=== PATIENT | female | born 1930 | race Caucasian/White ===

== ENCOUNTER 2020-09-15 08:57 | Inpatient (IN) | payer MEDICARE, BC ==
[~2020-09-15] VITALS: Ht 167.6 cm; Wt 73.5 kg
--- NOTE | 2020-09-15 09:00 | NUR ---
[id number] C/O HIP AND LOWER BACK PAIN S/P TRIPPED ON HER CAT AND FALLING BACKWARDS THIS AM. PATIENT A/OX4, BREATHING EVEN AND UNLABORED, NO SOB NOTED. NEEDS ATTENDED, REFUSED TO CHANGE INTO A GOWN. PLACED ON THE MONITOR.
--- NOTE | 2020-09-15 09:15 | NUR ---
MORGUE TECHNICIAN AT BEDSIDE
[2020-09-15] MEDS ORDERED: ACETAMINOPHEN 325 MG TABLET ONE (09:16)
[2020-09-15] MEDS ORDERED: ACETAMINOPHEN 325 MG TABLET PO ONE (09:30)
[2020-09-15] MEDS ORDERED: ACET-2605 PO (10:01)
--- NOTE | 2020-09-15 10:28 | NUR ---
Attempted to ambulate patient with a cane, patient c.o pain on right hip. Ordered walker and will try again.
--- NOTE | 2020-09-15 10:56 | NUR ---
PROVIDED PATIENT A WALKER, PATIENT IS STILL C/O PAIN ON HER RIGHT HIP WHEN SHE TRIES TO AMBULATE. DR. GALVAN MADE AWARE AND ORDERED A CT SCAN.
--- NOTE | 2020-09-15 11:18 | NUR ---
PATIENT CAME BACK FROM CT.
--- NOTE | 2020-09-15 11:19 | NUR ---
SON IFEANYI'S PHONE # [phone]
--- NOTE | 2020-09-15 11:56 | NUR ---
radiology md on phone talking to dr saldivar
--- NOTE | 2020-09-15 12:04 | NUR ---
panel paged. awaiting hospitalist call back. dr aquino.
--- NOTE | 2020-09-15 12:06 | NUR ---
paged orthopedics for consult, awaiting to call back.
--- NOTE | 2020-09-15 12:19 | NUR ---
MOVE SHEET SUBMITTED AND CALLED FOR MS BED.
--- NOTE | 2020-09-15 12:22 | NUR ---
COVID SWAB SENT. PATIENT A/OX4. RESTING, NO DISTRESS NOTED/
[2020-09-15] MEDS ORDERED: AMLO-212 PO (12:23)
[2020-09-15] MEDS ORDERED: FOLI0.4T6 PO (12:23)
[2020-09-15] MEDS ORDERED: LOVA20TA2 PO (12:23)
[2020-09-15 12:27] LABS: BASOPHILS % (AUTO) 0.2 % (0.0-2.0); EOSINOPHILS % (AUTO) 0.2 % (0.0-6.0); HEMATOCRIT 39 % (33-45); HEMOGLOBIN 12.8 g/dL (11.5-14.8); LYMPHOCYTES # (AUTO) 1.4 /CMM (0.8-4.8); MEAN CORPUSCULAR HGB CONC 33 g/dl (31.0-36.0); MEAN CORPUSCULAR VOLUME 95 fL (82-100); MONOCYTES # (AUTO) 0.6 /CMM (0.1-1.30); MONOCYTES % (AUTO) 3.8 % (2.0-12.0); NEUTROPHILS # (AUTO) 14.8 /CMM (1.8-8.9); NEUTROPHILS % (AUTO) 87.8 % (43.0-81.0); PLATELET COUNT (AUTO) 249 /CMM (150-450); RED BLOOD CELL COUNT(AUTO) 4.06 MIL/uL (4.0-5.2); WHITE BLOOD COUNT (AUTO) 16.9 K/uL (4.3-11.0)
[2020-09-15 12:32] LABS: CALCIUM, SERUM 8.9 mg/dL (8.5-10.1); POTASSIUM 3.8 mmol/L (3.5-5.1)
--- NOTE | 2020-09-15 13:07 | NUR ---
texted dr. blanca kam
--- NOTE | 2020-09-15 13:14 | NUR ---
CALLED [facility] PER DR. HALL REQUEST PA WILL CALL US BACK.
--- NOTE | 2020-09-15 13:19 | NUR ---
LAB CALLED PT COVID NEGATIVE (-)
[2020-09-15] MEDS ORDERED: VITA1TAB56 PO (13:23)
[2020-09-15] MEDS ORDERED: HYDROCODONE/APAP 5/325MG TABLET PO PRN (13:30)
[2020-09-15] MEDS ORDERED: Z GUARD REMEDY 2 OZ OINT TP PRN (13:30)
[2020-09-15] MEDS ORDERED: ZOLPIDEM TARTRATE 5 MG TABLET PO PRN (13:30)
[2020-09-15] MEDS ORDERED: ACETAMINOPHEN 325 MG TABLET PO PRN (13:30)
[2020-09-15] MEDS ORDERED: ONDANSETRON HCL/PF 4 MG/2 ML VIAL IVP PRN (13:30)
[2020-09-15] MEDS ORDERED: MAGNESIUM HYDROXIDE 30 ML UDC PO PRN (13:30)
[2020-09-15] MEDS ORDERED: MAG HYDROX/AL HYDROX/SIMETH 30 ML UDC PO PRN (13:30)
--- NOTE | 2020-09-15 14:00 | NUR ---
bed 307-1
--- NOTE | 2020-09-15 14:09 | NUR ---
REPORT GIVEN TO WAYNE MONROY.
--- NOTE | 2020-09-15 14:30 | NUR ---
MS/RN NOTES RECEIVED REPORT FROM MORTEZA RG RN. PATIENT IS ALERT AND ORIENTED X4. PATIENT IN ROOM AIR SATURATION 97%. PATIENT IN NO APPARENT RESPIRATORY DISTRESS NOTED. COMPLAINED OF PAIN RATED 8/10. VITAL SIGN TAKEN AND RECORDED. PHYSICAL ASSESSMENT WAS DONE. WILL CONTINUE TO MONITOR.
--- NOTE | 2020-09-15 14:58 | NUR ---
PATIENT TRANSFERRED TO ROOM 329, IN NO DISTRESS NOTED. NEEDS ATTENDED. KEPT COMFORTABLE. ENDORSED TO WAYNE.
[2020-09-15] MEDS: MORPHINE SULFATE INJ 2 MG/ML DISP.SYRIN IV PRN (16:03)
[2020-09-15] MEDS: ENOXAPARIN SODIUM 40 MG/0.4 ML DISP.SYRIN SQ SCH (16:05)
[2020-09-15] MEDS: AMLODIPINE BESYLATE 5 MG TABLET PO SCH (16:06)
--- NOTE | 2020-09-15 18:47 | NUR ---
MS/RN CLOSING NOTES PATIENT IS ON BED ALERT AND ORIENTED X 4. PATIENT IN ROOM AIR SATURATION 97%. PATIENT IN NO APPARENT RESPIRATORY DISTRESS NOTED. NO COMPLAINED OF PAIN NOTED AT THIS TIME. IV ACCESS AT RIGHT AC #20G G PATENT AND INTACT. SEEN AND EXAMINED BY MD WITH ORDERS MADE AND CARRIED OUT. ALL DUE MEDICATIONS WAS GIVEN. SAFETY PRECAUTIONS WAS IN PLACED, SIDE RAILS UP X2. CALL LIGHT WITHIN REACH. WILL ENDORSED TO BLANCHARD GRINDER OPERATOR FOR EUGENIO.
--- NOTE | 2020-09-15 19:30 | NUR ---
MS RN NOTES RECEIVED ON BED,SEMI FOWLERS POSITION,BREATHING REGULAR,NOT IN ANY FORM DISTRESS,PAIN TOLERABLE AT THE MOMENT,HARD OF HEARING ON BOTH EARS,PROMINENT ON THE RIGHT.SALINE LOCK RIGHT AC INTACT AND PATENT.CALL LIGHT IN REACH,NEEDS ANTICIPATED.
[2020-09-15 19:57] LABS: BILIRUBIN,URINE NEGATIVE (NEGATIVE); COLOR,URINE YELLOW (YELLOW); PH,URINE 7.5 (5.0-8.0); PROTEIN,URINE NEGATIVE (NEGATIVE); UGLUCOSE NEGATIVE (NEGATIVE)
[2020-09-15 19:58] LABS: LEUKOCYTE ESTERASE ,URINE NEGATIVE (NEGATIVE); NITRITE, URINE NEGATIVE (NEGATIVE); UROBILINOGEN,URINE 0.2 EU/dL (0.2)
[2020-09-15 20:00] VITALS: BP 128/71
[2020-09-15 20:03] LABS: BACTERIA,URINE Few /HPF (None Seen); SQUAMOUS EPITHELIAL CELL,UR Few /HPF (None Seen); WBC,URINE 0-2 /HPF (0-3)
[2020-09-15] MEDS: ATORVASTATIN 40 MG TABLET PO SCH (22:02)
--- NOTE | 2020-09-16 06:26 | NUR ---
MS RN NOTES FAIRLY RESTED,DUE MEDS ADMINISTERED,PAIN TOLERABLE,SLEEP WELL WITHOUT PHARMACOLOGICAL INTERVENTION.SALINE LOCK REMAINS PATENT.NON WEIGHT BEARING ON RIGHT LOWER EXTREMITIES,IN NO ACUTE DISTRESS.CALL LIGHT IN REACH,NEEDS ATTENDED.
[2020-09-16 06:55] LABS: BASOPHILS % (AUTO) 0.3 % (0.0-2.0); EOSINOPHILS % (AUTO) 1.9 % (0.0-6.0); HEMATOCRIT 36 % (33-45); HEMOGLOBIN 12.1 g/dL (11.5-14.8); LYMPHOCYTES # (AUTO) 1.9 /CMM (0.8-4.8); LYMPHOCYTES % (AUTO) 20.6 % (20.0-44.0); MEAN CORPUSCULAR HGB CONC 34 g/dl (31.0-36.0); MEAN CORPUSCULAR VOLUME 95 fL (82-100); MONOCYTES # (AUTO) 0.5 /CMM (0.1-1.30); MONOCYTES % (AUTO) 5.2 % (2.0-12.0); NEUTROPHILS # (AUTO) 6.5 /CMM (1.8-8.9); PLATELET COUNT (AUTO) 224 /CMM (150-450); RED BLOOD CELL COUNT(AUTO) 3.78 MIL/uL (4.0-5.2); WHITE BLOOD COUNT (AUTO) 9.1 K/uL (4.3-11.0)
[2020-09-16 07:23] LABS: CALCIUM, SERUM 8.9 mg/dL (8.5-10.1); CREATININE 0.8 mg/dL (0.6-1.3); MAGNESIUM 1.8 mg/dL (1.8-2.4); PHOSPHORUS 3.1 mg/dL (2.5-4.9); POTASSIUM 3.6 mmol/L (3.5-5.1)
--- NOTE | 2020-09-16 07:50 | NUR ---
MS/RN OPENING NOTES RECEIVED PATIENT IN BED, ALERT AND ORIENTED X4. NO SHORTNESS OF BREATH NOTED, ON ROOM AIR AND SATURATING WELL. NO PAIN REPORTED AT THIS TIME. LOW BED AND CALL LIGHT WITHIN REACH. WILL CONTINUE TO MONITOR.
[2020-09-16 07:51] LABS: THYROID STIMULATING HORMONE 1.528 uIU/mL (0.358-3.74)
[2020-09-16 08:00] VITALS: BP 154/73
[2020-09-16] MEDS: MORPHINE SULFATE INJ 2 MG/ML DISP.SYRIN IV PRN (08:24)
[2020-09-16] MEDS: AMLODIPINE BESYLATE 5 MG TABLET PO SCH (08:57)
[2020-09-16] MEDS: VITAMIN B COMP W-C 1 TAB TABLET PO SCH (08:57)
[2020-09-16 16:00] VITALS: BP 130/60
--- NOTE | 2020-09-16 18:46 | NUR ---
MS/RN CLOSING NOTES PATIENT IS IN BED LAYING COMFORTABLY, ALERT AND ORIENTED X4. NO SHORTNESS OF BREATH NOTED, ON ROOM AIR AND SATURATING WELL. PRN PAIN MEDS GIVEN ORDERED WITH GOOD EFFECTS. LOW BED AND CALL LIGHT WITHIN REACH. WILL ENDORSED TO THE BOTTLE LABELER FOR EUGENIO.
--- NOTE | 2020-09-16 19:30 | NUR ---
MS RN NOTES RECEIVED ON BED A/O X3,HARD OF HEARING ON BOTH EARS,S/P TRIPPED ON HER CAT AND SUSTAINED RIGHT ACETABULAR AND INFERIOR PUBIC RAMI FRACTURE,BED REST FOR NOW,NON WEIGHT BEARING ON RIGHT LOWER EXTREMITIES,WITH SALINE LOCK RIGHT AC INTACT AND PATENT.WILL MONITOR FOR PAIN,CALL LIGHT IN REACH,NEEDS ANTICIPATED.
[2020-09-16 20:00] VITALS: BP 131/61
[2020-09-16] MEDS: ATORVASTATIN 40 MG TABLET PO SCH (21:15)
[2020-09-16] MEDS: ENOXAPARIN SODIUM 40 MG/0.4 ML DISP.SYRIN SQ SCH (21:16)
--- NOTE | 2020-09-17 06:45 | NUR ---
MS RN NOTES FAIRLY RESTED AT NIGHT,OFFERED PAIN MANAGEMENT BUT REFUSED,REPOSITION FOR COMFORT.POSSIBLE D/C TO [facility],IN NO ACUTE DISTRESS.
[2020-09-17 08:05] VITALS: BP 139/61
[2020-09-17] MEDS: VITAMIN B COMP W-C 1 TAB TABLET PO SCH (08:57)
[2020-09-17] MEDS: AMLODIPINE BESYLATE 5 MG TABLET PO SCH (08:57)
[2020-09-17 09:41] LABS: IRON, SERUM 26 ug/dl (50-175); TOTAL IRON BINDING CAPACITY 193 ug/dl (250-450)
[2020-09-17 09:58] LABS: FERRITIN 386 ng/mL (8-388)
[2020-09-17] MEDS ORDERED: BISACODYL SUPP (10 MG) 10 MG/SUPP.RECT SUPP.RECT RC PRN (12:30)
--- NOTE | 2020-09-17 15:45 | NUR ---
MS RN NOTES Pt awake, A&Ox4. VS WNL. No c/o of pain or discomfort at this time but reports pain when walking with PT. Rest relieves pain. Pt reports she feels constipated like she needs to go but cant. MOM given -will monitor for BM. Pt able to make needs known. Uses bedpan. Addendum: 09/17/20 at 1553 by GAVIN BETTS RN Correction: Time is 0800. (opening note)
[2020-09-17 16:06] VITALS: BP 149/62
--- NOTE | 2020-09-17 16:09 | NUR ---
Agricultural Education Professor note: director agricultural services follow up to discuss the patient's recent fall and plan of care. Upon interview, SW asked the patient what the reason of the fall was and patient stated that she tripped on her cat. Patient stated that she will be discharged to [facility] [place] [address]; [phone]. No further SS intervention needed at this time, however SW will remain available as needed.
--- NOTE | 2020-09-17 18:43 | NUR ---
RN MS NOTES PT IN BED, AWAKE, ALERT AND ORIENTED, NO COMPLAINT AT THIS TIME, BREATHING PATTERN NORMAL, PT ABLE TO HAVE 1 BOWEL MOVEMENT TODAY, SEEN BY DR. PITTS, DISCHARGE ORDER GIVEN, DISCHARGE AND MEDICATION INSTRUCTIONS PROVIDED TO PT, VERBALIZED UNDERSTANDING, SON ANDREA AWARE OF DISCHARGE TO [facility] AND IS AGREEABLE WITH THE PLAN, BELONGINGS ACCOUNTED FOR, REPORT GIVEN TO LOLLY MONROY OF [facility], PICKED UP BY 2 AMBULANCE PERSONNEL, LEFT VIA GUERNEY IN STABLE CONDITION.
== END 2020-09-17 18:45 | DRG 536 ==
LOC: ER 09:03 → MED 14:19
DX: S32.401A Unspecified fracture of right acetabulum, initial encounter for closed fracture (principal); J98.11 Atelectasis; W01.0XXA Fall on same level from slipping, tripping and stumbling without subsequent striking against object, initial encounter; Y92.9 Unspecified place or not applicable; Z20.822 Contact with and (suspected) exposure to COVID-19; M19.90 Unspecified osteoarthritis, unspecified site; E78.5 Hyperlipidemia, unspecified; I10 Essential (primary) hypertension; K57.30 Diverticulosis of large intestine without perforation or abscess without bleeding; K44.9 Diaphragmatic hernia without obstruction or gangrene; K83.8 Other specified diseases of biliary tract; Z88.2 Allergy status to sulfonamides; Z91.018 Allergy to other foods; Z79.899 Other long term (current) drug therapy; Z96.642 Presence of left artificial hip joint; Z90.49 Acquired absence of other specified parts of digestive tract; D25.9 Leiomyoma of uterus, unspecified; Z85.3 Personal history of malignant neoplasm of breast; M46.06 Spinal enthesopathy, lumbar region
CPT/HCPCS: 36415; 71045-TC; 73521; 80048-TC; 80061-TC; 81001; 82728-TC; 83540-TC; 83735-TC; 84100-TC; 84443-TC; 85025-TC; 85610-TC; 86850-TC; 87081-TC; 87086-TC; 87186-TC; 93307-TC; 97112-TC; 97530-TC; C9803; G0378; J1650; J2270